=== PATIENT | male | born 1980 | race Caucasian/White ===

== ENCOUNTER 2018-05-30 12:43 | Emergency (ER) | payer OTHER ==
[2018-05-30] MEDS: morphine 10 MG INJ IM (13:21)
== END 2018-05-30 16:52 | disposition home or self-care (01) ==
LOC: E/R 12:43
DX: X58.XXXA Exposure to other specified factors, initial encounter (principal); Y92.9 Unspecified place or not applicable
CPT/HCPCS: 73000; 73030; 96372; 99284-25